=== PATIENT | female | born 1945 | race Caucasian/White ===

== ENCOUNTER → 2018-01-01 | Outpatient (CLI) | payer OTHER ==
[~2018-01-01] MED LIST: REVIEWED
--- NOTE | 2018-01-02 07:40 | MAMMOGRAPHY REPORT ---
BILATERAL DIGITAL SCREENING MAMMOGRAM TOMOSYNTHESIS WITH CAD: 01/01/2018 CLINICAL HISTORY: Routine screening. Patient has no complaints. TECHNIQUE: Breast tomosynthesis in addition to standard 2D mammography was performed. Current study was also evaluated with a Computer Aided Detection (CAD) system. COMPARISON: Comparison is made to exams dated: 09/02/2016 mammogram, 08/31/2015 mammogram, 02/27/2015 ma mmogram, 08/27/2014 mammogram, 08/08/2014 mammogram, and 03/24/2011 mammogram - [facility]. BREAST COMPOSITION: There are scattered areas of fibroglandular density in both breasts. FINDINGS: There is a stable benign rim calcification in the right upper outer quadrant. A few other coarse calcifications bilaterally. No new suspicious mass, architectural distortion or cluster of mi crocalcifications is seen. IMPRESSION: ACR BI-RADS CATEGORY 1: NEGATIVE There is no mammographic evidence of malignancy. A 1 year screening mammogram is recommended. The pa tient will receive written notification of the results. Approximately 10% of breast cancers are not detected with mammography. A negative mammographic report should not delay biopsy if a clinically suggestive mass is present. Minda Nunez M.D. ay/:01/01/2018 13:16:36 Pension Agent: Nicolasa ROBERTS)(Jj), [facility] letter sent: Normal 1/2 BI-RADS Code: ACR BI-RADS Category 1: Negative
== END | disposition home or self-care (01) ==
LOC: C.MAMM 10:42
PROVIDERS: ATTEND Family Medicine
DX: Z12.31 Encounter for screening mammogram for malignant neoplasm of breast (principal)

== ENCOUNTER → 2018-04-13 | Outpatient (CLI) | payer OTHER ==
--- NOTE | 2018-04-13 13:50 | DIAGNOSTIC IMAGING REPORT ---
LUMBAR SPINE 2 OR 3 VIEWS CLINICAL HISTORY: 72 years-old Female presenting with GLUTEAL TENDINITIS, L HIP, CONSTIPATION UNSPECIFIED. TECHNIQUE: Frontal, lateral, and coned in lateral views of the lumbar spine were obtained. COMPARISON: None. FINDINGS: No significant scoliosis. Normal lumbar lordosis. Vertebral bodies maintain normal height and alignment. Intervertebral disc heights preserved. Trace degenerative change evident. No radiographic evidence of osseous neural foraminal narrowing. No compression deformity or subluxation. Moderate stool burden throughout the colon. Lung bases clear. IMPRESSION: Mild degenerative changes of the lumbar spine. No radiographic evidence of acute osseous injury. Electronically signed by: Prakash German M.D. 04/13/2018 1:49 PM Dictated Date/Time: 04/13/2018 1:48 PM
--- NOTE | 2018-04-13 13:52 | DIAGNOSTIC IMAGING REPORT ---
PELVIS/BILATERAL HIP 2 VIEWS CLINICAL HISTORY: 72 years-old Female presenting with GLUTEAL TENDINITIS, L HIP, CONSTIPATION UNSPECIFIED. TECHNIQUE: Single frontal view of the pelvis as well as frontal and frog-leg lateral views of the bilateral hips were obtained. COMPARISON: None. FINDINGS: Sacroiliac joints, pubic symphysis, and hip joints congruent. Bony pelvis intact. Arcuate lines of the sacrum intact. No acute fracture or malalignment. No advanced degenerative change. Moderate stool burden evident. Right hip joint with preserved joint space. No advanced degenerative change. No femoral neck fracture. No malalignment. Left hip joint and straight's synovial herniation pits along the base of the femoral neck. Joint space is preserved. No advanced degenerative change. No femoral neck fracture. IMPRESSION: 1. No acute osseous injury or advanced degenerative change of the pelvis, right hip, or left hip. 2. Moderate stool burden consistent with constipation. Electronically signed by: Prakash German M.D. 04/13/2018 1:51 PM Dictated Date/Time: 04/13/2018 1:49 PM
== END | disposition home or self-care (01) ==
LOC: C.RAD 13:01
PROVIDERS: ATTEND Family Medicine
DX: M76.02 Gluteal tendinitis, left hip (principal); K59.00 Constipation, unspecified